=== PATIENT | female | born 1975 | race Caucasian/White ===

== ENCOUNTER 2020-11-03 13:32 | Emergency (ER) | payer BC, SELFPAY ==
[2020-11-03 13:55] VITALS: BP 149/96; PULSE 85; RESP 23; TEMP 37.5; O2SAT 100
--- NOTE | 2020-11-03 14:34 | ED.URI ---
HPI - URI/Sore Throat General Chief Complaint: Upper Respiratory Infection Stated Complaint: EAR ACHE/CHILLS/FEVER/FATIGUE Time Seen by Provider: 11/03/20 14:34 Source: patient and RN notes reviewed Mode of arrival: ambulatory Limitations: no limitations History of Present Illness HPI Narrative: 45-year-old female presents to the [facility] with complaints of ear aches, chills, fever and fatigue states it was a sudden onset at 10 AM this morning. No treatment prior to arrival. Related Data Home Medications Medication Instructions Recorded Confirmed lisinopril 02/01/19 venlafaxine [Effexor XR] 150 mg PO DAILY 02/01/19 brexpiprazole [Rexulti] mg 11/03/20 11/03/20 quetiapine 11/03/20 Allergies Allergy/AdvReac Type Severity Reaction Status Date / Time latex Allergy Unknown Verified 11/03/20 14:08 bupropion AdvReac Severe major Verified 11/03/20 14:08 mood swings Review of Systems Review of Systems: All systems reviewed & are unremarkable except as noted in HPI and below Constitutional: Constitutional: Reports as per HPI, Reports chills, Reports fatigue and Reports fever(s) Eyes: Eyes: Reports no additional eye complaints, Denies change in vision and Denies photophobia ENT: Reports as per HPI, Reports nasal congestion and Reports sore throat Cardiovascular: Cardiovascular: Reports no additional cardiovascular complaints and Reports chest pain Respiratory: Respiratory: Reports as per HPI, Reports cough and Denies dyspnea Gastrointestinal: Gastrointestinal: Reports no additional gastrointestinal complaints, Denies abdominal pain, Denies nausea and Denies vomiting Musculoskeletal: Musculoskeletal: Reports as per HPI, Reports back pain and Reports myalgias Integumentary/Breasts: Skin/Breast: Reports system reviewed and no additional complaints, except as docu Neurologic: Reports as per HPI and Reports headache(s) Psychiatric: Psychiatric: Reports no additional psychiatric complaints Allergic/Immunologic: Allergic/Immunologic: Reports no additional allergic/immunologic complaints PMF Past Medical History Medical History Hypertension Obesity Pulmonary embolus Surgical History Surgical History H/O: hysterectomy Social History Social History Smoking status: Current every day smoker Gender identity (if verbalized by the patient): Female Comments At the time of my signature, I reviewed and agree with the nursing past medical, surgical, social, and family history. There is no relevant family history pertinent to the patient complaint. Exam Const: General: alert and ill appearing acutely (Mild, appears nontoxic) Nutritional Appearance: well nourished and obese Orientation/consciousness: patient oriented x3 Limitations: no limitations HENMT: Head: normal to inspection Ears: external ears normal, TM's normal bilaterally and EAC's normal General nose exam: Nasal discharge present clear Mouth: Yes Normal oral and palatal mucosa present and Yes moist mucous membranes Throat: postnasal drainage Eyes: Conjunctivae: conjunctivae normal Pupils: Equal, round and reactive pupils present Neck: Neck: normal visual inspection, no lymphadenopathy and no meningeal signs Chest: Chest palpation & inspection: normal inspection of the chest Resp: Effort & Inspection: normal respiratory effort and no use of accessory muscles Auscultation: clear to auscultation bilaterally, no crackles, no rales, no rhonchi and no wheezes Cardio: Rate: regular rate Rhythm: regular rhythm : General: Yes no CVA tenderness Back/Spine/Pelvis: Back: no CVA tenderness Skin: General skin exam: normal color Rashes: no rashes Neuro: General: patient oriented x3, moves all extremities, no meningeal signs and no focal motor deficits Speech: normal speech Gait exam (Ne
[2020-11-04 19:41] LABS: SARS-CoV-2 RNA PCR Negative
== END 2020-11-03 15:34 | disposition home or self-care (01) ==
PROVIDERS: Emergency Provider Nurse Practitioner
DX: B34.9 Viral infection, unspecified (principal); Z20.822 Contact with and (suspected) exposure to COVID-19; F17.200 Nicotine dependence, unspecified, uncomplicated; I10 Essential (primary) hypertension; Z86.711 Personal history of pulmonary embolism; E66.9 Obesity, unspecified; Z68.42 Body mass index [BMI] 45.0-49.9, adult
CPT/HCPCS: 87081; 87804; 87880; 99213; C9803; G0463; U0003; U0005

== ENCOUNTER 2020-11-06 16:12 | Emergency (ER) | payer BC, SELFPAY ==
[2020-11-06 16:20] VITALS: BP 153/88; PULSE 99; RESP 15; TEMP 37.2; O2SAT 98
--- NOTE | 2020-11-06 17:47 | ED.EAR ---
HPI - Ear Problem General Chief complaint: Ear Stated complaint: ear pain Time Seen by Provider: 11/06/20 17:32 History of Present Illness HPI Narrative: 45 yo female presents to the ED c/o ear pain;. She began having right ear pain 4 days ago. Since that tie the pain has worsened and she has developed swelling anterior to the ear. She now has pain on the left side as well. She was [place] last week. No systemic symptoms. Related Data Home Medications Medication Instructions Recorded Confirmed lisinopril 02/01/19 venlafaxine [Effexor XR] 150 mg PO DAILY 02/01/19 brexpiprazole [Rexulti] mg 11/03/20 11/03/20 quetiapine 11/03/20 Allergies Allergy/AdvReac Type Severity Reaction Status Date / Time latex Allergy Unknown Verified 11/06/20 16:23 bupropion AdvReac Severe major Verified 11/06/20 16:23 mood swings Review of Systems Review of Systems: All systems reviewed & are unremarkable except as noted in HPI and below Eyes: Eyes: Reports no additional eye complaints ENT: Denies sore throat Cardiovascular: Cardiovascular: Denies chest pain Respiratory: Respiratory: Denies dyspnea Gastrointestinal: Gastrointestinal: Denies nausea Neurologic: Reports headache(s), Denies numbness and Denies weakness PMFSH Past Medical History Medical History Hypertension Obesity Pulmonary embolus Surgical History Surgical History H/O: hysterectomy Social History Social History Smoking status: Current every day smoker Gender identity (if verbalized by the patient): Female Exam Const: General: healthy appearing, no acute distress and alert Nutritional Appearance: obese Orientation/consciousness: patient oriented x3 HENMT: Ears: Abnormal EAC present erythema bilateral, edema bilateral, EAC tenderness bilateral and otic discharge purulent on the right Face and sinus: normal facial exam Eyes: Pupils: Equal, round and reactive pupils present Resp: Effort & Inspection: normal respiratory effort Skin: General skin exam: normal color Neuro: General: patient oriented x3 and moves all extremities Speech: normal speech Extrem: General: normal to inspection Psych: Appearance: grossly normal and well kempt Mental Status: mental status grossly normal Affect: normal affect Attitude: cooperative Course Vital Signs Vital signs: Vital Signs Temperature 37.2 C 11/06/20 16:20 Pulse Rate 99 11/06/20 16:20 Respiratory Rate 15 11/06/20 16:20 Blood Pressure 153/88 H 11/06/20 16:20 Pulse Oximetry 98 11/06/20 16:20 Temperature 37.2 C 11/06/20 16:20 Pulse Rate 99 11/06/20 16:20 Respiratory Rate 15 11/06/20 16:20 Blood Pressure 153/88 H 11/06/20 16:20 Pulse Oximetry 98 11/06/20 16:20 Medical Decision Making Differential Diagnosis Differential Diagnosis: Otitis externa on exam Medical Records Medical records reviewed: Yes I reviewed the external patient's medical records. Vital Signs Vital Signs: Vital Signs Temperature 37.2 C 11/06/20 16:20 Pulse Rate 99 11/06/20 16:20 Respiratory Rate 15 11/06/20 16:20 Blood Pressure 153/88 H 11/06/20 16:20 Pulse Oximetry 98 11/06/20 16:20 Temperature 37.2 C 11/06/20 16:20 Pulse Rate 99 11/06/20 16:20 Respiratory Rate 15 11/06/20 16:20 Blood Pressure 153/88 H 11/06/20 16:20 Pulse Oximetry 98 11/06/20 16:20 Discharge Plan Discharge Clinical Impression: Otitis externa Patient Disposition: Home, Self-Care Condition: Stable Instructions: Antibiotic Form, Swimmer's Ear (ED) Prescriptions: New ciprofloxacin HCl 500 mg tablet 500 mg PO Q12H Qty: 14 RF: 0 No Action Rexulti 0.5 mg tablet RF: 0 quetiapine 50 mg tablet RF: 0 venlafaxine [Effexor XR] 150 mg Capsule,Exte
[2020-11-06] MEDS: CIPROFLOXACIN 500 MG TAB PO (18:17)
[2020-11-06] MEDS: CIPROFLOXACIN HC OTIC 10 ML 3 DROP EACH EAR (18:17)
== END 2020-11-06 18:49 | disposition home or self-care (01) ==
PROVIDERS: Emergency Provider Emergency Medicine
DX: H60.91 Unspecified otitis externa, right ear (principal); I10 Essential (primary) hypertension; Z86.711 Personal history of pulmonary embolism; E66.9 Obesity, unspecified; Z68.42 Body mass index [BMI] 45.0-49.9, adult; F17.200 Nicotine dependence, unspecified, uncomplicated
CPT/HCPCS: 99283; A9270